=== PATIENT | male | born 1950 | race Hispanic/Latino ===

== ENCOUNTER 2018-03-23 08:04 | Day surgery (SDC) | payer MEDICARE ==
[2018-03-23] MEDS ORDERED: Propofol 10 mg/ml Inj (20 ML) ONE (10:52)
[2018-03-23] MEDS ORDERED: ePHEDrine 50 mg/ml Inj ONE (11:03)
[2018-03-23 12:35] VITALS: TEMP 97
[2018-03-23 12:45] VITALS: BP 122/65; PULSE 72; RESP 20; O2SAT 99
== END 2018-03-23 12:30 | disposition home or self-care (01) ==
LOC: C.ENDO 08:04
PROVIDERS: ATTEND Internal Medicine Gastroenterology
DX: Z12.11 Encounter for screening for malignant neoplasm of colon (principal); D12.5 Benign neoplasm of sigmoid colon; K63.5 Polyp of colon; K64.1 Second degree hemorrhoids
CPT/HCPCS: 45385; 88305; J2704